=== PATIENT | male | born 1930 | race Caucasian/White ===

== ENCOUNTER 2019-05-20 19:24 | Observation (INO) | payer MEDICARE, OTHER ==
[~2019-05-20] VITALS: Ht 175.3 cm; Wt 88.7 kg
[~2019-05-20 19:24] MED LIST: AGGRENOX ER 251 CER PO; ASPIR-LOW81 MG PO; ASPIRIN 81M81 MG/TA2 PO; BLOOD PRESSURE; CHOLESTROL MED; CIPRO 500MG TA500 MG PO; DIABETIC PILL; DIOVAN 80MG80 MG PO; JANUMET 500 MG-1 TA1 PO; METFORMIN HCL850 MG PO; ZETIA10 MG PO
[2019-05-20 19:46] LABS: COLLECTION METHOD CLEAN CATCH
[2019-05-20 19:53] LABS: PH 6 (5-8); SQUAMOUS EPITHELIAL None Seen /hpf; URINE APPEARANCE Turbid; URINE BACTERIA None Seen /hpf; URINE BILIRUBIN Negative (NEGATIVE); URINE BLOOD 1+ (NEGATIVE); URINE COLOR Yellow; URINE GLUCOSE 2+ (NEGATIVE); URINE KETONE Negative (NEGATIVE); URINE LEUKOCYTE ESTERASE 2+ (NEGATIVE); URINE NITRATE Negative (NEGATIVE); URINE PROTEIN(semi-quant) 2+ (NEGATIVE); URINE RBC 20-50 /hpf; URINE UROBILINOGEN Negative (NEGATIVE)
[2019-05-20 21:23] LABS: BASO % 0.3 % (0.0-2.0); EOS % 0.1 % (0-4.0); GRAN # 9.9 (1.4-6.5); GRAN % 84.9 % (42.2-75.2); HEMOGLOBIN 10.6 g/dl (13.5-18.0); LYMPH # 0.7 (1.2-3.4); LYMPH % 6.3 % (20.0-51.0); MEAN CELL VOLUME 82 fl (80.0-100.0); MEAN CORPUSCULAR HEMOGLOBIN 26 pg (27.0-31.0); MEAN CORPUSCULAR HGB CONC 31 g/dl (33.0-37.0); MEAN PLATELET VOLUME 9.5 fl (7.4-10.4); MONO # 0.9 (0.1-0.6); MONO % 7.8 % (1.7-9.3); PLATELET COUNT 260 K/mm3 (130-400); RED BLOOD COUNT 4.14 M/mm3 (4.20-5.60); REDCELL DISTRIBUTION WIDTH-CV 14.2 % (11.5-14.5)
[2019-05-20 21:24] LABS: HEMATOCRIT 34.1 % (42.0-52.0)
[2019-05-20 21:27] LABS: ALBUMIN 3.5 gm/dL (3.5-5.0); BILIRUBIN,TOTAL 0.4 mg/dL (0.0-1.0); CREATININE, serum 2.43 (0.66-1.25); POTASSIUM 3.6 mmol/L (3.4-5.0); TOTAL PROTEIN 6.5 gm/dL (6.4-8.2)
--- NOTE | 2019-05-21 00:30 | NUR ---
Pt arrived to room 314, transferred per stretcher by ED staff. Pt awake, a&o, cooperative c cares. Pt denies pain or other c/o. IV patent. Tele in place. Samina to CADEN. Pt oriented to room, unit policies et current POC. Questions invited et answered, pt verbalizes understanding. No needs at this time. Call light in reach, bed alarm on. Will continue to monitor.
[2019-05-21 00:48] VITALS: BP 171/81; PULSE 101; TEMP 98.4
[2019-05-21] MEDS ORDERED: JANUMET 500 MG-1 TA1 PO (01:02)
[2019-05-21] MEDS ORDERED: VITAMIN D31000 I1 PO (01:04)
[2019-05-21] MEDS ORDERED: VITAMIN C500 MG PO (01:04)
[2019-05-21] MEDS ORDERED: PRAVACHOL 40MG40 MG PO (01:05)
[2019-05-21] MEDS ORDERED: DIOVAN/HCT 12.51 TAB PO (01:07)
[2019-05-21] MEDS ORDERED: THE MEDICINE S200 M2 PO (01:07)
[2019-05-21 03:49] VITALS: BP 147/70; PULSE 67; TEMP 97.4
[2019-05-21 05:57] LABS: BASO % 0.2 % (0.0-2.0); EOS % 0.3 % (0-4.0); GRAN # 8.5 (1.4-6.5); LYMPH # 0.9 (1.2-3.4); MEAN CELL VOLUME 80 fl (80.0-100.0); MEAN CORPUSCULAR HGB CONC 32 g/dl (33.0-37.0); MEAN PLATELET VOLUME 9.5 fl (7.4-10.4); MONO # 0.6 (0.1-0.6); MONO % 5.9 % (1.7-9.3); PLATELET COUNT 234 K/mm3 (130-400); RED BLOOD COUNT 3.78 M/mm3 (4.20-5.60); REDCELL DISTRIBUTION WIDTH-CV 14.2 % (11.5-14.5)
[2019-05-21 06:01] LABS: HEMATOCRIT 30.4 % (42.0-52.0); HEMOGLOBIN 9.8 g/dl (13.5-18.0); MEAN CORPUSCULAR HEMOGLOBIN 26 pg (27.0-31.0)
[2019-05-21 06:14] LABS: CREATININE, serum 1.98 (0.66-1.25); POTASSIUM 3.7 mmol/L (3.4-5.0)
[2019-05-21 06:15] LABS: CREATININE, serum 1.98 (0.66-1.25); FRACTIONAL EXCRETION OF NA+ 1.3 %
[2019-05-21 08:01] VITALS: BP 173/56; PULSE 69
--- NOTE | 2019-05-21 08:30 | NUR ---
Assessment complete. Pt sitting up in bed, A&O x 3. Physical assessment unremarkable. Pt denies pain at this time. Haas catheter to DD with hazy, yellow urine. IVF's infusing per orders through left forearm site without s/s of complications. No further needs reported. Call light in reach.
--- NOTE | 2019-05-21 10:00 | NUR ---
IVF's stopped and disconnected per orders.
--- NOTE | 2019-05-21 10:10 | NUR ---
GURINDER met with the patient to discuss discharge plan. The patient lives alone in [place]. He states his only child, Sage Wilson ([id number]#[phone]), lives in [place] and that he has a nephew, Neo, that lives in [place]. He reports independence with ADLs and has a cane and a walk-in shower. The patient's PCP is Dr. Kalyn Garza and he receives his medications through a mail order. He reports no difficulties obtainining his meds. The patient does not have advanced directives and he was not interested in completing them at this time. He states that his next-of-kin is his daughter, Sage Wilson. The patient plans to return home upon discharge. He states that his nephew will provide transportation. GURINDER then discussed the hospitalist's recommendation of home health for nursing home to help with catheter care. The patient reports that he would be agreeable to this. GURINDER presented the patient with [employer]gov's list of home health agencies that serve [place]. The patient chose [facility]. GURINDER contacted and faxed a referral to Jaylin at [facility]. Jaylin reports that they can accept the patient for services. GURINDER to inform the patient and will continue to follow.
[2019-05-21 12:01] VITALS: BP 155/65; PULSE 80; TEMP 98.6
[2019-05-21 16:43] VITALS: BP 147/90; PULSE 72; TEMP 98.6
--- NOTE | 2019-05-21 18:30 | NUR ---
Pt sitting up in bed, awake and alert, requests fresh water which is provided, denies further needs at this time. Call light in reach.
--- NOTE | 2019-05-21 20:05 | NUR ---
Shift assessment complete. Pt resting in bed, awake, a&o, cooperative c cares. Pt denies pain or any other c/o at this time. INT patent. Samina to CADEN. Pt denies needs. Call light in reach, will monitor.
[2019-05-21 20:45] VITALS: BP 153/69; PULSE 83; TEMP 98.6
[2019-05-22 00:25] VITALS: BP 147/79; PULSE 75; TEMP 97.9
[2019-05-22 04:45] VITALS: BP 129/60; PULSE 80; TEMP 98
[2019-05-22 07:14] VITALS: BP 137/66; PULSE 59; TEMP 98.4
[2019-05-22 07:47] LABS: BASO % 0.1 % (0.0-2.0); EOS % 0.2 % (0-4.0); GRAN # 6.9 (1.4-6.5); GRAN % 83.4 % (42.2-75.2); LYMPH # 0.8 (1.2-3.4); LYMPH % 9.6 % (20.0-51.0); MEAN CELL VOLUME 81 fl (80.0-100.0); MEAN CORPUSCULAR HGB CONC 31 g/dl (33.0-37.0); MEAN PLATELET VOLUME 9.6 fl (7.4-10.4); MONO # 0.5 (0.1-0.6); PLATELET COUNT 211 K/mm3 (130-400); RED BLOOD COUNT 3.49 M/mm3 (4.20-5.60); REDCELL DISTRIBUTION WIDTH-CV 14.5 % (11.5-14.5)
[2019-05-22 07:51] LABS: HEMATOCRIT 28.2 % (42.0-52.0); HEMOGLOBIN 8.8 g/dl (13.5-18.0); MEAN CORPUSCULAR HEMOGLOBIN 25 pg (27.0-31.0)
[2019-05-22 07:56] LABS: CALCIUM 7.9 mg/dL (8.4-10.2); CREATININE, serum 1.84 (0.66-1.25); POTASSIUM 3.6 mmol/L (3.4-5.0)
--- NOTE | 2019-05-22 10:00 | NUR ---
Pt alert and oriented and pt IV was out upon assessment when went to flush. Pt IV discontinued and not bleeding noted. Pt am assessment completed and munoz care provided. Pt constipated this am and would like stool softner. Pt urine yellow and slightly cloudy. Pt has call light in reach and denies pain or SOB.
[2019-05-22 12:13] VITALS: BP 174/95; PULSE 87; TEMP 98.3
[2019-05-22] MEDS ORDERED: FLOMAX 0.40.4 MG/CAP PO (12:22)
[2019-05-22] MEDS ORDERED: JANUMET 500 MG-1 TA1 PO (12:28)
[2019-05-22] MEDS ORDERED: GLUCOPHAGE500 MG/TAB PO (12:29)
--- NOTE | 2019-05-22 14:05 | NUR ---
GURINDER met with the patient to discuss PT's recommendation of a front wheeled walker. The patient reports that he may have one at home, but is unsure. He states that he would be interested in getting one, just in case. GURINDER presented and explained the Patient Choice Form for DME to the patient. The patient chose [facility]. Patient choice form signed by the patient and he was provided a copy. GURINDER contacted and faxed the order to Mariela at [facility]. SW awaiting approval for walker and for it to be delivered to patient's room.
[2019-05-22 15:41] VITALS: BP 128/75; PULSE 56; TEMP 97.7
--- NOTE | 2019-05-22 15:58 | NUR ---
Mariela, at [facility], reports that they will deliver the patient's walker to his room. The patient is to discharge back home today, 05/22, with home health services for senior care/PT/OT through [facility]. GURINDER contacted and faxed the patient's discharge orders to Jaylin at [facility]. The patient's nephew plans to transport the patient back home. No additional needs at this time.
--- NOTE | 2019-05-22 16:45 | NUR ---
Pt alert and oriented. Pt given discharge instructions on follow up appts and medications changes. Pt education provided on DC foely care and supplies sent home with pt. Pt has homehealth going to see him. Pt's niece going to pick him up and we will escort him out to her car. Pt denies needs at this time and has all belongings. Pt had meds from pharmacy delivered to him in his room and walker delivered as well. Pt escorted out by aide without issue.
== END 2019-05-22 16:45 | disposition home or self-care (01) ==
LOC: COL.ER 19:24 → MEDICAL 22:02
PROVIDERS: Emergency Medicine; Family Medicine; Nurse Practitioner Family; ADMIT Hospitalist
DX: N40.1 Benign prostatic hyperplasia with lower urinary tract symptoms (principal); R35.0 Frequency of micturition; R33.9 Retention of urine, unspecified; N13.9 Obstructive and reflux uropathy, unspecified; E11.22 Type 2 diabetes mellitus with diabetic chronic kidney disease; I12.9 Hypertensive chronic kidney disease with stage 1 through stage 4 chronic kidney disease, or unspecified chronic kidney disease; N18.3 Chronic kidney disease, stage 3 (moderate); D63.1 Anemia in chronic kidney disease; Z86.73 Personal history of transient ischemic attack (TIA), and cerebral infarction without residual deficits; Z79.82 Long term (current) use of aspirin; M19.90 Unspecified osteoarthritis, unspecified site; E88.81 Metabolic syndrome and other insulin resistance; Z87.891 Personal history of nicotine dependence; Z83.3 Family history of diabetes mellitus; Z82.49 Family history of ischemic heart disease and other diseases of the circulatory system; E87.6 Hypokalemia
CPT/HCPCS: A4216; G0378; J0696; J1644; J3480; J7030

== ENCOUNTER → 2020-07-16 | Outpatient (CLI) | payer MEDICARE, OTHER ==
[~2020-07-16] MED LIST changes: +DIOVAN/HCT 12.51 TAB PO; +FLOMAX 0.40.4 MG/CAP PO; +GLUCOPHAGE500 MG/TAB PO; +JANUVIA50 MG PO; +LOPRESSOR 225 MG/TAB PO; +NATURAL IRON65 MG PO; +NORVASC 5MG5 MG/TAB PO; +PRAVACHOL 40MG40 MG PO; +PROTONIX 40MG T40 MG PO; +THE MEDICINE S200 M2 PO; +UBIQUINOL100 MG PO; +VITAMIN C500 MG PO; +VITAMIN D31000 I1 PO
== END ==
LOC: COL.RAD 11:28
DX: N18.4 Chronic kidney disease, stage 4 (severe) (principal); N32.89 Other specified disorders of bladder

== ENCOUNTER 2020-12-16 15:00 | Outpatient (RCR) | payer MEDICARE, OTHER ==
[2020-11-13 14:44] VITALS: BP 154/70; PULSE 78; TEMP 98.1
--- NOTE | 2020-11-13 15:30 | NUR ---
Pt remained in dept for 30 mins following initial infusion of nulicit. He has tolerated infusion without issue. IV DC'd with catheter intact. Pt is assisted out by wheelchair by his nephew. Next appt scheduled, pt will be brought by nephew again.
[~2020-12-16] VITALS: Ht 175.3 cm; Wt 85.2 kg
[2020-12-16] MEDS ORDERED: PROTONIX 40MG T40 MG PO (15:14)
[2020-12-16] MEDS ORDERED: JANUVIA50 MG PO (15:15)
[2020-12-16] MEDS ORDERED: SODIUM BICARBO650 MG PO (15:17)
[2020-12-16] MEDS ORDERED: THE MEDICINE S200 M2 PO (15:20)
[2020-12-16 15:35] VITALS: BP 138/77; PULSE 69; TEMP 97.6
--- NOTE | 2020-12-16 16:43 | NUR ---
IV DC'd with catheter intact. Site wrapped with coban with instruction to remove once pt arrives home. He is assisted out by wheelchair by his nephew.
== END 2020-12-16 16:44 | disposition home or self-care (01) ==
LOC: EUO 15:00
DX: N18.4 Chronic kidney disease, stage 4 (severe) (principal); D63.1 Anemia in chronic kidney disease; D50.9 Iron deficiency anemia, unspecified
CPT/HCPCS: J2916